=== PATIENT | male | born 2000 | race Hispanic/Latino ===

== ENCOUNTER 2021-04-20 16:27 | Outpatient (CLI) | payer OTHER | END 2021-04-20 16:28 | disposition home or self-care (01) | LOC: RAD 16:27 | PROVIDERS: ATTEND Urology | DX: N13.5 Crossing vessel and stricture of ureter without hydronephrosis (principal) | CPT/HCPCS: 74018 ==

== ENCOUNTER 2021-04-30 11:25 | Outpatient (CLI) | payer OTHER ==
[2021-04-30 14:31] LABS: Bilirubin Neg (Negative); Blood, Urine 250 (Negative); Clarity Slightly Cloudy (Clear); Glucose, Urine (Dipstick) Normal (Negative); Ketone, Urine Negative (Negative); Leukocyte 500 (Negative); Nitrite Negative (Negative); Protein, Urine (Dipstick) 100 mg/dl (Neg-Trace); Specific Gravity, Urine 1.015 (1.002-1.036); Urobilinogen Normal mg/dL (Less than 2)
[2021-04-30 14:41] LABS: RBC/HPF 21-50 HPF (0-3); Squamous Epithelial 0-3 HPF (0-3); WBC/HPF 21-50 HPF (0-3)
[2021-04-30 14:42] LABS: Bacteria/HPF Rare-Few HPF (None Seen)
[2021-05-01 13:46] LABS: SARS-CoV-2 PCR by NAA DETECTED (NotDetected)
== END 2021-04-30 11:26 | disposition home or self-care (01) ==
LOC: LABBT 11:25
PROVIDERS: ATTEND Urology
DX: U07.1 COVID-19 (principal); Z20.822 Contact with and (suspected) exposure to COVID-19
CPT/HCPCS: 81001; 87086; U0003; U0005

== ENCOUNTER 2021-05-27 12:35 | Outpatient (CLI) | payer OTHER ==
[2021-05-27 13:27] LABS: Hemoglobin 16.3 g/dL (13.5-17.5); Mean Corpuscular HGB CONC 34.1 g/dL (32.0-36.0); Mean Platelet Volume 8.8 fl (7.4-10.4); Platelet Count 301 10x3/uL (150-450); RBC Distribution Width 11.6 % (11.5-14.5); Red Blood Cell (RBC) Count 5.25 10x6/uL (4.32-5.72); White Blood Cell (WBC) Count 9.3 10x3/uL (3.5-10.5)
[2021-05-27 13:34] LABS: Bilirubin Neg (Negative); Blood, Urine 250 (Negative); Clarity Cloudy (Clear); Glucose, Urine (Dipstick) Normal (Negative); Ketone, Urine Negative (Negative); Leukocyte 500 (Negative); Nitrite Negative (Negative); Protein, Urine (Dipstick) 500 mg/dl (Neg-Trace); Urobilinogen Normal mg/dL (Less than 2)
[2021-05-27 13:45] LABS: Anion Gap 12 mmol/L (10-20); BUN (Urea Nitrogen) 14 mg/dL (8.9-20.6); Calc. Creatinine Clearance 0 mL/min (70-130); Calcium 9.9 mg/dL (7.8-10.44); Carbon Dioxide 28 mmol/L (22-29); Chloride 105 mmol/L (98-107); Glucose 89 mg/dL (70-105); Potassium 4.2 mmol/L (3.5-5.1); Sodium 141 mmol/L (136-145)
[2021-05-27 13:54] LABS: Bacteria/HPF Rare-Few HPF (None Seen); RBC/HPF 21-50 HPF (0-3); Squamous Epithelial 0-3 HPF (0-3); WBC/HPF 21-50 HPF (0-3)
== END 2021-05-27 12:36 | disposition home or self-care (01) ==
LOC: LABBT 12:35
PROVIDERS: ATTEND Urology
DX: Z01.812 Encounter for preprocedural laboratory examination (principal); N21.0 Calculus in bladder
CPT/HCPCS: 80048; 81001; 85027; 87086

== ENCOUNTER 2021-06-01 07:05 | Day surgery (SDC) | payer OTHER ==
[2021-05-26 13:04] VITALS: BMI 20.2
[2021-06-01] MEDS ORDERED: Levofloxacin 500 mg/D5W 100 ml Premix Bag ONE (07:46)
[2021-06-01] MEDS ORDERED: Iothalamate Meglumine 60% 50 ML VIAL FS ONE (08:59)
[2021-06-01] MEDS ORDERED: Dexamethasone 20 MG/5 ML VIAL ONE (09:12)
[2021-06-01] MEDS ORDERED: Ketorolac Tromethamine 30 MG/ML VIAL ONE (09:12)
[2021-06-01] MEDS ORDERED: ePHEDrine 50 MG/ML VIAL ONE (09:12)
[2021-06-01] MEDS ORDERED: Fentanyl 100 MCG/2 ML VIAL ONE (09:12)
[2021-06-01] MEDS ORDERED: Ondansetron PF 4 MG/2 ML Vial ONE (09:12)
[2021-06-01] MEDS ORDERED: Lidocaine 1% PF 5 ML VIAL ONE (09:12)
[2021-06-01] MEDS ORDERED: Propofol 1,000 MG/100 ML VIAL IV ONE (09:12)
[2021-06-01] MEDS ORDERED: HYDROmorphone 2 MG/ML VIAL ONE (09:13)
[2021-06-01] MEDS ORDERED: Phenazopyridine HCl 100 MG TAB ONE (10:53)
[2021-06-01] MEDS ORDERED: Oxybutynin 5 MG TAB ONE (10:53)
== END 2021-06-01 12:50 | disposition home or self-care (01) ==
LOC: SDC 07:05
PROVIDERS: ATTEND Urology
PROC: 0T778DZ Dilation of Left Ureter with Intraluminal Device, Via Natural or Artificial Opening Endoscopic (ICD-10-PCS; principal; 2021-06-01)
PROC: 0TCB8ZZ Extirpation of Matter from Bladder, Via Natural or Artificial Opening Endoscopic (ICD-10-PCS; principal; 2021-06-01)
PROC: 0TC48ZZ Extirpation of Matter from Left Kidney Pelvis, Via Natural or Artificial Opening Endoscopic (ICD-10-PCS; principal; 2021-06-01)
DX: N20.0 Calculus of kidney (principal); N13.5 Crossing vessel and stricture of ureter without hydronephrosis; N21.0 Calculus in bladder; F17.200 Nicotine dependence, unspecified, uncomplicated
CPT/HCPCS: 74420; C2617; J1100; J1170; J1885; J1956; J2405; J2704; J3010; J3490; Q9961-U8

== ENCOUNTER 2021-06-15 07:23 | Observation (INO) | payer OTHER ==
[2021-06-14 08:30] VITALS: BMI 20.5
[2021-06-15] MEDS ORDERED: Fentanyl 100 MCG/2 ML VIAL ONE ×2 (08:47→12:10)
[2021-06-15] MEDS ORDERED: Dexmedetomidine 200 MCG/2 ML VIAL ONE (08:47)
[2021-06-15] MEDS ORDERED: Bupivacaine PF 0.5% 30 ML VIAL ONE (08:51)
[2021-06-15] MEDS ORDERED: Xylocaine 1% w/ Epi 1:100K 10 ML VIAL ONE (08:51)
[2021-06-15] MEDS ORDERED: ceFAZolin 2 GM/Dextrose 50 ML IVPB ONE (09:00)
[2021-06-15] MEDS ORDERED: Rocuronium Bromide 10 MG/ML (10ML VIAL) ONE (09:13)
[2021-06-15] MEDS ORDERED: Glycopyrrolate 0.2 MG/ML 5 ML SYRINGE ONE (09:13)
[2021-06-15] MEDS ORDERED: PROPOFOL 200 MG/20 ML VIAL ONE (09:13)
[2021-06-15] MEDS ORDERED: Dexamethasone 20 MG/5 ML VIAL ONE (09:13)
[2021-06-15] MEDS ORDERED: PHENYLEPHRINE-NS 100 MCG/ML 10 ML SYRINGE ONE (09:13)
[2021-06-15] MEDS ORDERED: Ondansetron PF 4 MG/2 ML Vial ONE (09:13)
[2021-06-15] MEDS ORDERED: Lidocaine 1% PF 5 ML VIAL ONE (09:13)
[2021-06-15] MEDS ORDERED: Promethazine HCl 25 MG/ML VIAL IM PRN (11:25)
[2021-06-15] MEDS ORDERED: PACU-Morphine 4MG/ML VIAL SLOW IVP PRN (11:25)
[2021-06-15] MEDS ORDERED: Promethazine HCl 25 MG/ML VIAL IVPB PRN (11:25)
[2021-06-15] MEDS ORDERED: Ondansetron HCl/PF 4 MG/2 ML Vial IVP PRN (11:25)
[2021-06-15] MEDS ORDERED: diphenhydrAMINE 50 MG/ML VIAL IVP PRN (11:32)
[2021-06-15] MEDS ORDERED: Ondansetron PF 4 MG/2 ML Vial IVP PRN (11:32)
[2021-06-15] MEDS ORDERED: Morphine 4 MG/ML VIAL SLOW IVP PRN (11:32)
[2021-06-15] MEDS ORDERED: Zolpidem Tartrate 5 MG TAB PO PRN (11:32)
[2021-06-15] MEDS ORDERED: Tamsulosin HCl 0.4 MG CAP PO SCH (11:45)
[2021-06-15] MEDS ORDERED: Docusate 100 MG CAP PO SCH (11:45)
[2021-06-15] MEDS ORDERED: Tamsulosin HCl 0.4 MG CAP ONE (14:15)
[2021-06-15] MEDS ORDERED: Ketorolac Tromethamine 30 MG/ML VIAL ONE (14:18)
[2021-06-15] MEDS ORDERED: Oxybutynin 5 MG TAB ONE (14:19)
[2021-06-15] MEDS: Sodium Chloride 0.9% 1,000 ML IV SCH ×2 (16:09→23:37)
[2021-06-15] MEDS: Oxybutynin 5 MG TAB PO SCH ×2 (16:10→20:50)
[2021-06-15] MEDS: Ketorolac Tromethamine 30 MG/ML VIAL IVP SCH ×3 (16:10→23:39)
[2021-06-15] MEDS: Docusate 100 MG CAP PO SCH (20:43)
[2021-06-15] MEDS: HYDROcodone/Acetaminophen 5/325 mg Tablet PO PRN (20:44)
[2021-06-16] MEDS: Ketorolac Tromethamine 30 MG/ML VIAL IVP SCH (05:22)
[2021-06-16] MEDS: Oxybutynin 5 MG TAB PO SCH (05:23)
[2021-06-16] MEDS: HYDROcodone/Acetaminophen 5/325 mg Tablet PO PRN ×2 (05:23→10:26)
[2021-06-16] MEDS: Docusate 100 MG CAP PO SCH (08:08)
[2021-06-16] MEDS: Sodium Chloride 0.9% 1,000 ML IV SCH (08:09)
[2021-06-16] MEDS ORDERED: Tamsulosin HCl 0.4 MG CAP PO SCH (09:00)
[2021-06-16 11:52] VITALS: BP 110/68; TEMP 98.3
== END 2021-06-16 11:15 | disposition home or self-care (01) ==
LOC: SDC 07:23 → SURG A 11:32
PROVIDERS: ADMIT Urology; ATTEND Urology
PROC: 0TQ44ZZ Repair Left Kidney Pelvis, Percutaneous Endoscopic Approach (ICD-10-PCS; principal; 2021-06-15)
DX: N13.5 Crossing vessel and stricture of ureter without hydronephrosis (principal); N20.0 Calculus of kidney
CPT/HCPCS: 96374; 96376; C2617; G0378; J0690; J1100; J1885; J2405; J2704; J3010; J7050; S0020

== ENCOUNTER 2021-12-10 10:13 | Outpatient (CLI) | payer OTHER | END 2021-12-10 10:14 | disposition home or self-care (01) | LOC: SCSCT 10:13 | PROVIDERS: ATTEND Urology | DX: N13.5 Crossing vessel and stricture of ureter without hydronephrosis (principal); N20.0 Calculus of kidney | CPT/HCPCS: 74176 ==